=== PATIENT | female | born 1965 | race Caucasian/White ===

== ENCOUNTER 2018-11-30 00:05 | Emergency (ER) | payer OTHER, SELFPAY ==
[2018-11-30 00:06] VITALS: BP 113/76; PULSE 95; RESP 15; TEMP 36.3; BMI 22.3
--- NOTE | 2018-11-30 00:18 | ED.RN ---
states allergy is to a med that she was given when she had a colonoscopy. states it me me crazy and talk about off the wall things
--- NOTE | 2018-11-30 00:23 | RAD_ITS ---
STUDY: X-RAY CHEST REASON FOR EXAM: Female, 52 years old. Fever, body aches and diarrhea since . TECHNIQUE: Single AP portable view of the chest. COMPARISON: None. FINDINGS: The lungs are clear and expanded. There is no demonstrated pleural abnormality. Normal size heart. Normal mediastinum and jeri. Normal visualized pulmonary arteries. Normal visualized aortic arch and descending thoracic aorta. Normal visualized thoracic spine. Normal visualized ribs, clavicles, and shoulders. There is no demonstrated abnormality of the visualized soft tissue structures of the upper abdomen. RAD/Chest 1 View (Portable) IMPRESSION: No radiographic evidence of acute cardiopulmonary disease. Electronically Signed: Geraldine Gonzalez MD at 2:21 EST , Service support ,
--- NOTE | 2018-11-30 00:29 | ED.DCSUM_ITS ---
- ER Visit Summary Date of Service: 11/30/18 Chief Complaint: Fever, body aches, diarrhea History of Present Illness: The patient is a 52 F who developed body aches and fever on November 27. Fever was well controlled with Motrin. On the she developed diarrhea and tonight noted a fever up to 104. She has not had significant congestion or cough. She does not have nausea or vomiting. She did take Motrin approximate 1 hour prior to arrival. Patient does report having a similar illness proximal 9 years ago at which time she was admitted for a week at [facility]. They never found a definitive diagnosis, but thought she may have had Salmonella at that time. Physical Examination: Vital signs unremarkable. Patient sitting upright in bed no acute distress. Head neck examination is significant for dry mucous membranes. Heart is regular rate and rhythm. Lungs sounds are with scant expiratory wheeze at the right base. Abdomen is soft nontender. Hypoactive bowel sounds are noted throughout. Neuro exam is unremarkable. Test Results: [] Emergency Department Course and Treatment: Laboratory studies including stool studies have been ordered. Patient received IV fluids patient be signed out to oncoming physician to check final labs. Treatment Plan: [] Disposition: Pending Impression: Diarrhea This note was generated with [employer] dictation software. It may contain incorrect words, spelling, and punctuation that were not noted in review of the chart prior to signing ED Disposition - Plan for ED Patient: Chief Complaint: General Illness Referrals: Shahrzad Ivan MD [Primary Care Provider] -
[2018-11-30] MEDS: 0.9% Normal Saline 1,000 ML 1000 ML IV (00:33)
[2018-11-30] MEDS: 0.9% Normal Saline 1,000 ML 150 ML IV (00:34)
[2018-11-30 00:46] LABS: Absolute Lymphocyte Count 0.54 X10^3/ul (0.83-4.51); Absolute Neutrophil Count 5.1 X10^3/uL (2.0-7.7); Basophil# 0.01 X10^3/uL; Basophil% 0.2 % (0-1); Hematocrit 41.9 % (37-47); Hemoglobin 13.8 g/dl (12.0-15.0); Lymphocyte # 0.54 X10^3/ul (4.0); Lymphocyte % 8.9 % (19-41); Mean Corp Hgb Conc 32.9 g/gl (32-36); Mean Corpuscular Hgb 28.3 pg (27.0-32.0); Mean Corpuscular Volume 85.9 fL (81-99); Mean Platelet Vol. 10.2 fl (6.2-12.0); Monocyte# 0.43 X10^3/uL; Monocyte% 7.1 % (0-10); Neutrophil # 5.05 X10^3/uL (2.7-7.7); Neutrophil % 83.6 % (47-70); Platelet Count 214 K/mm3 (150-450); RBC Distribution Width CV 14.8 % (11.6-14.6); RBC Distribution Width SD 45.7 fl (35.1-43.9); Red Blood Count 4.88 M/mm3 (4.2-5.4)
[2018-11-30 00:49] LABS: Differential Indicated SCAN CRITERIA MET; POSITIVE COUNT NO; POSITIVE DIFFERENTIAL YES; POSITIVE MORPHOLOGY NO
[2018-11-30 00:59] LABS: Anion Gap 11 (5-15); BUN 11 mg/dL (7-18); BUN/Creat Ratio 11.9 RATIO (10-20); Calcium,Total 8.9 mg/dL (8.5-10.1); Chloride 106 mmol/L (98-107); Creatinine, Serum 0.92 mg/dL (0.55-1.02); EST Glomerular Filtration Rate 68 mL/min (>60); Est Glom Filt Rate - Afr Amer 82 mL/min (>60); Estimated Creatinine Clearance 62.47 ml/min; Glucose 84 mg/dL (74-106); Sodium Level 137 mmol/L (136-145)
[2018-11-30 01:29] LABS: Red Blood Cells-Urine 0 SEEN /hpf (0-5)
[2018-11-30 01:30] LABS: Color, Urine Yellow (Yellow); Glucose, Dipstick Normal (Normal); Leukocyte Esterase-Dipstick Negative /ul (Negative); Nitrite-Dipstick Negative (Negative); Occult Blood-Urine Negative /ul (Negative); Protein-Dipstick 30 mg/dl (Negative); Specific Gravity, Urine 1.015 (1.002-1.030); Urine Bilirubin Dipstick Negative (Negative); Urine Clarity Sl. Cloudy (Clear); Urine Urobilinogen Normal (Normal)
[2018-11-30 01:37] LABS: Ketone-Dipstick 150 mg/dl (Negative)
[2018-11-30 01:38] LABS: Bacteria 1+ /hpf (None Seen); Mucous, Urine 2+ /hpf (<or=2+); Squamous Epithelial Cells - UA 5-10 SEEN /hpf (5-10); White Blood Cells 0-5 SEEN /hpf (0-5)
[2018-11-30 02:44] VITALS: BP 111/64; PULSE 83; RESP 15; O2SAT 97
--- NOTE | 2018-11-30 03:50 | ED.VISSUMM ---
- ER Visit Summary Date of Service: 11/30/18 See attached note. This document for D/C instructions only. This note was generated with [employer] dictation software. It may contain incorrect words, spelling, and punctuation that were not noted in review of the chart prior to signing ED Disposition - Plan for ED Patient: Disposition: Home or Assisted Living Chief Complaint: General Illness Diagnosis: Acute infectious diarrhea Instructions: ED Diarrhea Viral, ED Diarrhea Bacterial Referrals: Shahrzad Ivan MD [Primary Care Provider] - 2 Days Additional Instructions: Your white blood cell smear is positive, indicating the need to perform enteric bacterial testing, which is already sent and pending, should be back tomorrow. Ova and parasite testing is also pending and should be back tomorrow. If there is something positive, you should receive a phone call from us, but be sure and follow-up with your doctor on Saturday so that they can review the results and what was tested for with you. Avoid taking any antidiarrheals until you know the test results. Tylenol and ibuprofen as needed for aches, pains, fevers. Try to stay as hydrated as possible.
--- NOTE | 2018-11-30 03:53 | ED.DCSUM_ITS ---
- ER Visit Summary Date of Service: 11/30/18 See attached note. This document for D/C instructions only. This note was generated with [employer] dictation software. It may contain incorrect words, spelling, and punctuation that were not noted in review of the chart prior to signing ED Disposition - Plan for ED Patient: Disposition: Home or Assisted Living Chief Complaint: General Illness Diagnosis: Acute infectious diarrhea Instructions: ED Diarrhea Viral, ED Diarrhea Bacterial Referrals: Shahrzad Ivan MD [Primary Care Provider] - 2 Days Additional Instructions: Your white blood cell smear is positive, indicating the need to perform enteric bacterial testing, which is already sent and pending, should be back tomorrow. Ova and parasite testing is also pending and should be back tomorrow. If there is something positive, you should receive a phone call from us, but be sure and follow-up with your doctor on Saturday so that they can review the results and what was tested for with you. Avoid taking any antidiarrheals until you know the test results. Tylenol and ibuprofen as needed for aches, pains, fevers. Try to stay as hydrated as possible.
--- NOTE | 2018-11-30 06:59 | ED.RN ---
left msg on voicemail at [phone]
--- NOTE | 2018-11-30 10:11 | ED.RN ---
Called [facility] Gonzalez per pt request for atb Cipro 500mg po bid x5 days. SPoke with pharmacist Lazaro at [phone]
== END 2018-11-30 04:04 | disposition home or self-care (01) ==
PROVIDERS: Emergency Provider Emergency Medicine; Family Provider Internal Medicine; PCP Internal Medicine
DX: A09 Infectious gastroenteritis and colitis, unspecified (principal); K21.9 Gastro-esophageal reflux disease without esophagitis
CPT/HCPCS: 71045; 80048; 81001; 83630; 85025; 87177; 87209; 87493; 87506; 87804; 99283; J7030